=== PATIENT | female | born 1960 | race African-American/Black ===

== ENCOUNTER 2020-10-16 18:27 | Emergency (ER) | payer OTHER ==
[2020-10-16 19:05] VITALS: BP 121/77; PULSE 103; TEMP 98.1; BMI 29.9
[2020-10-16] MEDS ORDERED: CLINDAMYCIN HCL 300 MG CAPSULE PO ONE (19:41)
[2020-10-16] MEDS ORDERED: CLINDAMYCIN HCL 150 MG CAPSULE (FP) ONE (20:14)
== END 2020-10-16 21:00 | disposition home or self-care (01) ==
LOC: JER 18:27 → JERFT 18:27
DX: S81.801A Unspecified open wound, right lower leg, initial encounter (principal)
CPT/HCPCS: 99283-25

== ENCOUNTER 2021-08-13 16:41 | Observation (INO) | payer OTHER ==
[2021-08-13] MEDS ORDERED: ALBUTEROL SO4 2.5/IPRATROPIUM 0.5 INH SOL 3 ML VIAL.NEB. NEB ONE ×2 (17:44→17:53)
[2021-08-13] MEDS ORDERED: methylPREDNISolone NA SUCC 125 MG/2 ML VIAL IVPUSH ONE (18:08)
[2021-08-13] MEDS ORDERED: methylPREDNISolone NA SUCC 125 MG/2 ML VIAL ONE (18:33)
[2021-08-13 20:01] LABS: BASO % 0.6 % (0-2.0); EOS % 1.5 % (0-4.5); HEMATOCRIT 33.4 % (32.4-45.2); HEMOGLOBIN 10.7 GM/dL (10.7-15.3); LYMPH % 37.9 % (8-40); MCH 25.3 pg (25.7-33.7); MCHC 32.1 g/dl (32.0-36.0); MEAN CELL VOLUME 78.9 fl (80-96); MEAN PLT VOLUME 8.4 fl (7.5-11.1); MONO % 6.6 % (3.8-10.2); NEUT % 53.4 % (42.8-82.8); PLATELET COUNT 281 10^3/uL (134-434); RBC 4.23 M/mm3 (3.60-5.2); RDW 15.8 % (11.6-15.6); WHITE BLOOD COUNT 8.2 K/mm3 (4.0-10.0)
[2021-08-13 20:20] LABS: CALCIUM 9.1 mg/dL (8.5-10.1)
[2021-08-13 20:21] LABS: ALBUMIN 3.7 g/dl (3.4-5.0); BLOOD UREA NITROGEN 17.5 mg/dL (7-18)
[2021-08-13 20:24] LABS: CREATININE 0.7 mg/dL (0.55-1.3)
[2021-08-13 20:25] LABS: BILIRUBIN,TOTAL 0.2 mg/dL (0.2-1); TOT PROT 7.4 g/dl (6.4-8.2)
[2021-08-13] MEDS ORDERED: ASPIRIN 81 MG CHEWABLE TABLETS PO ONE (21:07)
[2021-08-13] MEDS ORDERED: ASPIRIN 81 MG CHEWABLE TABLETS ONE (21:12)
[2021-08-13 21:58] LABS: N-TERMINAL BNP 41.1 pg/ml (5-125)
[2021-08-13] MEDS ORDERED: ALBUTEROL SO4 2.5/IPRATROPIUM 0.5 INH SOL 3 ML VIAL.NEB. NEB PRN (22:50)
[2021-08-13] MEDS ORDERED: hydrALAZINE HCL 10 MG TABLET PO ONE (22:52)
[2021-08-13] MEDS ORDERED: ACETAMINOPHEN 325 MG TABLET (FP) PO ONE (23:53)
[2021-08-14] MEDS: methylPREDNISolone NA SUCC 40 MG/1 ML VIAL IVPUSH SCH ×3 (00:09→14:23)
[2021-08-14 01:44] VITALS: BMI 36.8
[2021-08-14] MEDS: INSULIN SLIDING SCALE (NOVOLOG) 1 VIAL SQ SCH ×3 (06:06→17:05)
[2021-08-14] MEDS: ALBUTEROL SO4 2.5/IPRATROPIUM 0.5 INH SOL 3 ML VIAL.NEB. NEB SCH ×4 (07:49→20:00)
[2021-08-14 09:21] LABS: BASO % 0.2 % (0-2.0); HEMATOCRIT 34.8 % (32.4-45.2); HEMOGLOBIN 11.3 GM/dL (10.7-15.3); LYMPH % 10.6 % (8-40); MCH 25.7 pg (25.7-33.7); MCHC 32.4 g/dl (32.0-36.0); MEAN CELL VOLUME 79.3 fl (80-96); MEAN PLT VOLUME 9.2 fl (7.5-11.1); MONO % 1.5 % (3.8-10.2); NEUT % 87.7 % (42.8-82.8); PLATELET COUNT 315 10^3/uL (134-434); RBC 4.39 M/mm3 (3.60-5.2); RDW 16.5 % (11.6-15.6); WHITE BLOOD COUNT 9.5 K/mm3 (4.0-10.0)
[2021-08-14] MEDS ORDERED: PANTOPRAZOLE 40 MG TABLET PO SCH (10:00)
[2021-08-14] MEDS ORDERED: BUDESONIDE/FORMETEROL FUMARATE 160/4.5 mcg INHALER IH SCH (10:00)
[2021-08-14] MEDS ORDERED: LOSARTAN POTASSIUM 50 MG TABLET PO SCH (10:00)
[2021-08-14] MEDS ORDERED: NIFEdipine E.R. 30 MG TABLET PO SCH (10:00)
[2021-08-14] MEDS ORDERED: TIOTROPIUM BROMIDE 2.5 MCG (SPIRIVA) RESPIMAT INHALER IH SCH (10:00)
[2021-08-14] MEDS ORDERED: HYDROCHLOROTHIAZIDE 25 MG TABLET (FP) PO SCH (10:00)
[2021-08-14] MEDS ORDERED: PATIENT'S OWN MEDICATION (NON-FORMULARY) (Famotidine 40 MG Tablet) PO SCH (10:00)
[2021-08-14 10:10] LABS: PHOSPHOROUS 2.7 mg/dL (2.5-4.9)
[2021-08-14 10:11] LABS: ALBUMIN 3.9 g/dl (3.4-5.0); BLOOD UREA NITROGEN 19.5 mg/dL (7-18); CREATININE 0.9 mg/dL (0.55-1.3)
[2021-08-14 10:12] LABS: BILIRUBIN,TOTAL 0.2 mg/dL (0.2-1); TOT PROT 7.8 g/dl (6.4-8.2)
[2021-08-14 10:14] LABS: CALCIUM 9.3 mg/dL (8.5-10.1); MAGNESIUM 2.3 mg/dL (1.8-2.4)
[2021-08-14] MEDS ORDERED: NIFEdipine E.R. 90 MG TABLET PO ONE (13:48)
[2021-08-14] MEDS ORDERED: NIFEdipine E.R 60 MG TABLET PO SCH (13:48)
[2021-08-14] MEDS ORDERED: NIFEdipine E.R. 30 MG TABLET ONE (14:14)
[2021-08-14] MEDS ORDERED: cloNIDine HCL 0.1 MG TABLET PO SCH (14:15)
[2021-08-14] MEDS ORDERED: SPIRONOLACTONE 25 MG TABLET PO SCH (14:15)
[2021-08-14] MEDS ORDERED: TIZANIDINE HCL 2 MG TABLET PO PRN (15:13)
[2021-08-14] MEDS: ATORVASTATIN CA 40 MG TABLET (FP) PO SCH ×2 (15:34→15:38)
[2021-08-14 18:12] VITALS: BP 136/80; PULSE 112; TEMP 98.9
[2021-08-14] MEDS ORDERED: MONTELUKAST NA 10 MG TABLET PO SCH (22:00)
[2021-08-14] MEDS ORDERED: INSULIN (LEVEMIR) 100 UNITS/ML UNITS SQ SCH (22:00)
== END 2021-08-14 19:45 | disposition left against medical advice (07) ==
LOC: JER 16:41 → JERBED 20:47 → J4S 23:50
PROVIDERS: ADMIT Hospitalist; ATTEND Internal Medicine
PROC: 3E0F7GC Introduction of Other Therapeutic Substance into Respiratory Tract, Via Natural or Artificial Opening (ICD-10-PCS; principal; 2021-08-13)
PROC: 3E013VG Introduction of Insulin into Subcutaneous Tissue, Percutaneous Approach (ICD-10-PCS; 2021-08-13)
PROC: 3E023GC Introduction of Other Therapeutic Substance into Muscle, Percutaneous Approach (ICD-10-PCS; 2021-08-13)
DX: R07.89 Other chest pain (principal); R06.82 Tachypnea, not elsewhere classified; R09.02 Hypoxemia; J43.9 Emphysema, unspecified; E11.9 Type 2 diabetes mellitus without complications; I10 Essential (primary) hypertension; J45.909 Unspecified asthma, uncomplicated; R79.9 Abnormal finding of blood chemistry, unspecified; Z29.8 Encounter for other specified prophylactic measures; Z87.891 Personal history of nicotine dependence
CPT/HCPCS: 0241U-QW; 36415; 71046-TC-FY; 80048; 80053; 82962; 83036; 83735; 83880; 84100; 84484; 85025; 85379; 93005; 93010; 94640; 94761; 96372; 96374; 96375; 99285-25; G0378; J0735